=== PATIENT | male | born 1975 | race Caucasian/White ===

== ENCOUNTER 2017-06-28 06:44 | Emergency (ER) | payer OTHER ==
[~2017-06-28] VITALS: Ht 180.3 cm; Wt 126.1 kg
--- NOTE | ~2017-06-28 | CT52 ---
[facility] A Service of [facility] RADIOLOGY TEXT RESULTS PATIENT: CORNEL TUCKER LOCATION: [facility] : [birth year] UNIT #: [id number] AGE: [address]: Zeb Gorman MD SEX: M ORDER DR: [id number] [place] [id number] [facility]. [place], [place] [address] [id number] E MR#: [id number] Acc #: [id number] NAME: CORNEL TUCKER : 1975 SEX: M STUDY DATE/TIME: 06/28/2017 7:46 UNIT: [facility] ROOM: STUDY DESCRIPTION: CT Cervical Spine Wo Cont Attending Physician: Zeb Gorman M.D. Ordering Physician: Zeb Gorman M.D. Primary Care Physician: No Primary Care Physician MEDICAL IMAGING REPORT This report is preliminary unless electronic signature is present EXAM CT cervical spine without contrast. HISTORY 42-year-old male, unsteady gait, slurred speech, neck pain onset today. TECHNIQUE Thin section axial images performed through the cervical spine without contrast. Study is motion degraded. Multiplanar reconstructions. This CT exam was performed with one or more of the following radiation dose reduction techniques: automatic exposure control, adjustment of mA and/or kV according to patient size, and iterative reconstruction. FINDINGS No acute fracture or malalignment. Multilevel degenerative disc disease C4-5, C5-6, and C6-7 with mild to moderate central canal stenosis. This CT is limited for evaluation of disc disease due to lack of intrathecal contrast and motion degradation. Upper thorax unremarkable. Craniocervical cervicothoracic junctions appear normal. The atlantoaxial joint unremarkable except mild degenerative change. IMPRESSION 1. Technically limited study due to motion degradation. No acute fracture or malalignment. 2. Multilevel degenerative disc disease with multilevel spinal and foraminal stenosis most pronounced C4-5, C5-6, and C6-7. Significant uncovertebral osteophytes at the C5-6 level contributes to severe bilateral foraminal stenosis. Similar findings also noted at C4-5. Dictated by... [facility] A Service of [facility] RADIOLOGY TEXT RESULTS PATIENT: CORNEL TUCKER [id number] [birth year] UNIT #: [id number] AGE: [address]: Zeb Gorman MD SEX: M ORDER DR: Jelena Abdalla M.D. THIS IS AN ELECTRONICALLY VERIFIED REPORT Jelena Abdalla M.D. at 06/28/2017 4:48 PM BETINA/briana TD: 06/28/2017 12:05 JOB #: [id number] MEDICAL IMAGING REPORT Page 1 of 1 COPY
--- NOTE | ~2017-06-28 | CT71 ---
[facility] A Service of [facility] & [facility] RADIOLOGY TEXT RESULTS PATIENT: CORNEL TUCKER LOCATION: [facility] : 73 UNIT #: [id number] AGE: [address]: Zeb Gorman MD SEX: M ORDER DR: [id number] [facility] [address] [place], [place] [address] [id number] E MR#: [id number] Acc #: [id number] NAME: CORNEL TUCKER : 1975 SEX: M STUDY DATE/TIME: 06/28/2017 7:46 UNIT: [facility] ROOM: STUDY DESCRIPTION: CT Head Wo Contrast Attending Physician: Zeb Gorman M.D. Ordering Physician: Zeb Gorman M.D. Primary Care Physician: Primary Care Physician No MEDICAL IMAGING REPORT This report is preliminary unless electronic signature is present EXAM CT scan of the head without contrast HISTORY Unsteady gait, slurred speech, neck pain starting today. TECHNIQUE This CT exam was performed with one or more of the following radiation dose reduction techniques: automatic exposure control, adjustment of mA and/or kV according to patient size, and iterative reconstruction. FINDINGS Axial noncontrast images were obtained from the skull base to the vertex. Ventricular size and configuration are normal. There is no evidence of acute infarct or hemorrhage. There are no extra-axial fluid collections. No mass lesion or mass effect is seen. There are no skull fractures. IMPRESSION Normal noncontrast head CT. Dictated by... Ricardo Riddle M.D. THIS IS AN ELECTRONICALLY VERIFIED REPORT Ricardo Riddle M.D. at 06/28/2017 12:24 PM Elvi TD: 06/28/2017 11:35 JOB #: [id number] MEDICAL IMAGING REPORT Page 1 of 1 COPY
[2017-06-28 07:42] LABS: BASOPHIL# 0.1 X10e3 (0-0.3); BASOPHIL% 0.9 % (0-2.5); EOSINOPHIL# 0.7 X10e3 (0-0.7); EOSINOPHIL% 7.6 % (0.0-7.0); HEMATOCRIT 48.5 % (38.0-50.0); HEMOGLOBIN 16.7 gm/dL (13.0-16.0); LYMPHOCYTE# 1.9 X10e3 (1.0-3.5); LYMPHOCYTE% 21.7 % (17.0-45.0); MEAN CELL VOLUME 95.2 FL (83-96); MEAN CORPUSCULAR HEMOGLOBIN 32.8 PG (28-34); MEAN CORPUSCULAR HGB CONC 34.4 g/dL (30-36); MEAN PLATELET VOLUME 8.1 FL (6.5-11.5); MONOCYTE# 0.8 X10e3 (0-1.0); MONOCYTE% 9.8 % (3.0-12.0); NEUTROPHIL# 5.2 X10e3 (1.5-7.1); PLATELET COUNT 302 X10e3 (140-420); RED BLOOD COUNT 5.09 X10e (3.90-5.60); RED CELL DISTRIBUTION WIDTH 13.2 % (11.0-15.5); WHITE BLOOD COUNT 8.7 X10e3 (4.0-10.5)
[2017-06-28 07:48] LABS: DIFF IND NO
[2017-06-28 08:10] LABS: ALBUMIN SERUM 4.4 g/dL (3.5-5.0); ALKALINE PHOSPHATASE 63 U/L (32-92); ALT (SGPT) 54 U/L (10-40); AST (SGOT) 47 U/L (10-42); BILIRUBIN,TOTAL 0.4 mg/dL (0.2-2.0); BLOOD UREA NITROGEN 11 mg/dL (9-23); CARBON DIOXIDE 24 mmol/L (22-31); CHLORIDE 105 mmol/L (100-111); GLOM FILT RATE Estimated 91.8 mL/min (>60); GLUCOSE FASTING 87 mg/dL (70-110); LIPASE 30 U/L (22-51); POTASSIUM 3.5 mmol/L (3.5-5.1); PROTEIN TOTAL SERUM 7.5 g/dL (6.0-8.3); SALICYLATE <4.0 mg/dL; SODIUM 140 mmol/L (135-145)
[2017-06-28 08:12] LABS: ACETAMINOPHEN <10 ug/mL; ALCOHOL BLOOD 186 mg/dL (0)
== END 2017-06-28 13:50 | disposition home or self-care (01) ==
LOC: CED 06:44
PROVIDERS: Emergency Medicine
DX: T42.4X1A Poisoning by benzodiazepines, accidental (unintentional), initial encounter (principal); F10.20 Alcohol dependence, uncomplicated
CPT/HCPCS: 36415; 70450; 72125; 80053; 83690; 85025; 96360; 99285; G0480; J3411; J3475

== ENCOUNTER 2017-06-30 11:58 | Observation (INO) | payer OTHER ==
[~2017-06-30] VITALS: Ht 180.3 cm; Wt 121.2 kg
--- NOTE | ~2017-06-30 | CR170 ---
[facility] A Service of [facility] & [facility] RADIOLOGY TEXT RESULTS PATIENT: CORNEL TUCKER LOCATION: [facility] 325-01 : [birth year] UNIT #: [id number] AGE: [address]: CARLITO SOLIS V SEX: M ORDER DR: [id number] [facility] [address] [place], [place] [address] [id number] I MR#: [id number] Acc #: [id number] NAME: CORNEL TUCKER : 1975 SEX: M STUDY DATE/TIME: 07/01/2017 12:59 UNIT: [address] ROOM: [facility] STUDY DESCRIPTION: CR Knee 2 Views Rt Attending Physician: Carlito Solis M.D. Ordering Physician: Carlito Solis M.D. Primary Care Physician: Generic Doctor Not In System MEDICAL IMAGING REPORT This report is preliminary unless electronic signature is present EXAM 2 views right knee, 07/01/2017 HISTORY 42-year-old male with right knee pain after falling 5 days ago. COMPARISON None FINDINGS AP and lateral projection of the knee shows smooth articular anatomy without indication of fracture or dislocation at the major weight-bearing surface of the knee. There is no indication of radiopaque foreign body about the knee surface or joint effusion. IMPRESSION Normal right knee. Dictated by... Azucena Deutsch M.D. THIS IS AN ELECTRONICALLY VERIFIED REPORT Azucena Deutsch M.D. at 07/02/2017 8:56 AM JUNIOR/rosa TD: 07/01/2017 17:09 JOB #: [id number] MEDICAL IMAGING REPORT Page 1 of 1 COPY
--- NOTE | ~2017-06-30 | CO ---
Unit #: [id number] #: [id number] Patient: ALFREDO TUCKER [id number] [address] [address] [id number] I MR#: [id number] NAME: ALFREDO TUCKER ROOM: 325 Age: 42 Sex: M Admission Date: 06/30/2017 : 1975 Attending Physician: Henri Solis M.D. Primary Care Physician: Generic Doctor Not In System Consultation Date: 06/30/2017 CONSULTATION REPORT REASON FOR CONSULTATION Alcohol withdrawal, confusion, memory loss. HISTORY OF PRESENT ILLNESS Mr. Alfredo Tucker is a 42-year-old white male seen in room 325, bed 1 on 06/30/17. Patient reports that he is from [place] and he does not know how he ended up here. Patent is currently having alcohol withdrawal. Patient admitted using alcohol. Patient at this time is more coherent, cooperative, has a sitter. Patient denies any thoughts of harming self or others, denied any psychotic symptoms at this time. Patient was admitted with a history of alcohol abuse and Klonopin toxicity. Patient was sent from [place] [facility] with a concern of worsening of tremor. Patient was seen in the emergency room. Patient also had suicidal ideation in the past but denies any suicidal ideation at this time. Patient denied any use of any illicit drugs. Patient reports drinking a fifth of vodka and a 12 pack of beer. PAST PSYCHIATRIC HISTORY Past psychiatric history is remarkable for a history of alcohol abuse, history of depression, history of making suicidal statements. No history of any inpatient psychiatric treatment except recently at [place] [facility]. PAST MEDICAL HISTORY Remarkable for gout. MEDICATION HISTORY Patient was on Zoloft and Klonopin at home. SOCIAL AND FAMILY HISTORY Patient has a good support system, has a job, denied any history of any abuse, history of alcohol abuse, no history of any use of any illicit drugs. REVIEW OF SYSTEMS A complete review of systems is unremarkable except as mentioned above. PHYSICAL EXAMINATION VITAL SIGNS: Temperature 97.5, pulse 73, respirations 18, blood pressure 145/77, oxygen saturation 98%. MENTAL STATUS EXAMINATION General appearance, patient is dressed casually in hospital attire. Unit #: [id number] #: [id number] Patient: ALFREDO TUCKER Patient receiving IV fluid, has a sitter, able to answer questions appropriately, pleasant and cooperative. Attention span and concentration fair. Speech a regular rate, coherent. Oriented in time, place and person. Mood and affect sad, dysphoric, anxious, Thought process coherent. Thought content, the patient denied any thoughts of harming self or others or any hallucination but reported problem with the memory. Recent and remote memory fair but does not have recollection about how he got here. Language intact. Fund of knowledge fair. Insight and judgment fair to slightly impaired. DIAGNOSES PSYCHIATRIC: 1. Alcohol use disorder, severe, F10.20. 2. Delirium, F05, resolved. 3. History of major depressive disorder, recurrent, severe, F33.2. Secondary diagnosis: None Medical diagnosis: Please refer to H and P. Stressors: Psychosocial stressors. ASSESSMENT AND PLAN 1. Supportive psychotherapy and psychoeducation provided to patient. 2. Educated about benefits and side effects of medication and course and prognosis of illness. 3. Advised to continue with the current treatment and detox protocol, CIWA protocol. If needed consider further adjustment of medication. Please feel free to call if any question. Telephone number [phone]. Dictated by... Sharath Mesa/keyanna TD: 07/01/2017 20:43 JOB #: [id number] CONSULTATION REPORT Page 1 of 1 X Cresencio Gutierrez MD X CONSULTATION REPORT
--- NOTE | ~2017-06-30 | CO ---
Unit #: [id number] #: [id number] Patient: CORNEL AVILA [id number] [address] [place], [place] [address] [id number] I MR#: [id number] NAME: CORNEL AVILA ROOM: 325 Age: 42 Sex: M Admission Date: 06/30/2017 : 1975 Attending Physician: Henri Solis M.D. Primary Care Physician: Generic Doctor Not In System CONSULTATION REPORT REASON FOR CONSULTATION Followup. DISCUSSION MR. Cornel Avila is a 42-year-old male seen in room 325, bed 1, on 06/30/2017. The patient was referred for alcohol withdrawal, problems with memory, responding fairly well. The patient's urine drug screen was positive for benzodiazepines. The patient is pleasant and cooperative. He is dressed in hospital attire, lying comfortably in bed, receiving IV fluids. The patient denied any suicidal or homicidal ideation. Denied any psychotic symptoms. Has poor memory about coming to [place] from [place]. The patient was able to answer all the questions appropriately. The patient's vital signs are 98.1, respiratory rate 18, pulse 15/70, oxygen saturation 97%. GENERAL APPEARANCE: The patient is dressed casually. Attention span and concentration fair. Speech is regular rate, coherent, oriented to time, place and person. Mood and affect sad and dysphoric. Thought process coherent. Thought content normal. Denied any thoughts of harming self or others. Recent and remote memory fair. Language intact. Fund of knowledge fair. Insight and judgment fair to slightly impaired. DIAGNOSES Psychiatric 1. Alcohol use disorder. F10.20. 2. Major depressive disorder, recurrent. F33.2. ASSESSMENT/PLAN 1. Supportive psychotherapy, psychoeducation provided to the patient. 2. Educated about benefits and side effects of medication, course and prognosis of illness. 3. Advised to continue with current treatment and recommending to discontinue one-to-one monitoring. The patient is currently not suicidal or homicidal, cooperative. 4. Please feel free to call if any questions. Telephone number [phone] Dictated by... Cresencio Gutierrez M.D. Unit #: [id number] #: [id number] Patient: CORNEL AVILA [place]/gz TD: 07/01/2017 15:33 JOB #: [id number] CONSULTATION REPORT Page 1 of 1 X Cresencio Gutierrez MD CONSULTATION REPORT
--- NOTE | ~2017-06-30 | CO ---
Unit #: [id number] #: [id number] Patient: CORNEL TUCKER [id number] [address] [address] [id number] I MR#: [id number] NAME: CORNEL TUCKER ROOM: 325 Age: 42 Sex: M Admission Date: 06/30/2017 : 1975 Attending Physician: Henri Solis M.D. Primary Care Physician: Generic Doctor Not In System Consultation Date: 07/02/2017 CONSULTATION REPORT JOB NOTE: VERIFY WORK TYPE, MRN. ANDRAE Fuentes is a 42-year-old male, seen in room 325, bed 1 on 07/02/2017. The patient reports that he is feeling better and will be going to [facility] for rehab. The patient was alert, oriented in time, place, and person. The patient was able to answer questions coherently. Denied any suicidal or homicidal ideation. Denied any psychotic symptom. The patient's vital signs; temperature 98.6, heart rate 77, respiratory rate 19, blood pressure 154/105, and oxygen saturation 98%. REVIEW OF SYSTEMS Complete review of system is unremarkable. MENTAL STATUS EXAMINATION General appearance; the patient dressed casually. Attention span and concentration, fair. Speech, regular rate and coherent. Oriented in time, place, and person. Mood and affect were anxious, sad, dysphoric. Thought process, coherent. Thought content, the patient denied any thoughts of harming self or others. Recent and remote memory, fair. Language, intact. Fund of knowledge, fair. Insight and judgment, fair to slightly impaired. DIAGNOSIS Psychiatric: Alcohol use disorder, severe, F10.20. ASSESSMENT/PLAN 1. Supportive psychotherapy and psychoeducation provided to the patient. 2. Educated about benefits and side effects of medication and course and prognosis of illness. 3. Please feel free to call if any questions, telephone #[phone]. The patient will be going to [facility] for 30 days rehab program. Please feel free to call if any questions. Dictated by... Cresencio Gutierrez M.D. PHILLIP/vonnie TD: 07/03/2017 08:43 JOB #: [id number] Unit #: [id number] #: [id number] Patient: CORNEL TUCKER CONSULTATION REPORT Page 1 of 1 X Cresencio Gutierrez MD CONSULTATION REPORT
--- NOTE | ~2017-06-30 | DS ---
Unit #: [id number] #: [id number] Patient: CORNEL TUCKER [id number] [address] [address] [id number] I MR#: [id number] NAME: CORNEL TUCKER ROOM: 325 Age: 42 Sex: M Admission Date: 06/30/2017 : 1975 Discharge Date: 07/02/2017 Attending Physician: Henri Solis M.D. Primary Care Physician: Generic Doctor Not In System DISCHARGE SUMMARY PERTINENT HISTORY AND HOSPITAL COURSE The patient is a 42-year-old man with a history of alcohol abuse. He had initially presented to the emergency room on June 28 for worsening tremors, following which he was transferred to the [facility] for rehabilitation. While at the center, he apparently developed worsening delirium and was sent to the hospital for further evaluation. At the hospital, the patient received a psychiatry consultation. The psychiatrist provided supportive psychotherapy and psychoeducation to the patient. Recommended continuation of patient's current medications for treatment of depression and to continue current detox protocol. The patient is currently not suicidal, not having any auditory or visual hallucinations, not demonstrating any acute delirium. The patient's vitals are stable. The patient will be transferred back to [facility]. DISCHARGE DIAGNOSES 1. Alcohol abuse. 2. Alcohol withdrawal with delirium and tremors. 3. Depression. DISCHARGE MEDICATIONS 1. Gabapentin 300 mg p.o. b.i.d. 2. Zoloft 100 mg p.o. daily. 3. Norvasc 5 mg p.o. daily. 4. Allopurinol 300 mg p.o. daily. 5. Protonix 40 mg p.o. daily. 6. Lorazepam 1 mg p.o. daily. 7. Thiamine 200 mg p.o. daily. 8. Vitamin B complex one tablet p.o. daily. DISCHARGE INSTRUCTIONS 1. Patient is to be transferred to [facility]. 2. He is to continue with his current detox treatment. 3. Patient to follow with primary care physician as outpatient. 4. Followup with psychiatry as outpatient. Dictated by... Henri Solis M.D. [facility]/ Unit #: [id number] #: [id number] Patient: CORNEL TUCKER TD: 07/03/2017 15:01 JOB #: [id number] DISCHARGE SUMMARY Page 1 of 1 X X DISCHARGE SUMMARY
--- NOTE | ~2017-06-30 | HP ---
Unit #: [id number] #: [id number] Patient: CORNEL TUCKER [id number] [address] [address] [id number] I MR#: [id number] NAME: CORNEL TUCKER ROOM: 325 Age: 42 Sex: M Admission Date: 06/30/2017 : 1975 Attending Physician: Saurabh Smallwood M.D. HISTORY AND PHYSICAL CHIEF COMPLAINT Tremors. HISTORY OF PRESENT ILLNESS The patient is a 42-year-old male with a history of alcohol abuse and Klonopin toxicity brought to the emergency room from [facility] for concern for worsening tremors. The patient was seen in the emergency room on June 28 for clearance for detox placement. The patient had 20 mg of 0.5 mg Klonopin and drank a fifth of vodka and a 12-pack of beer on June 28. The patient was discharged from the emergency room to [facility]. The patient was brought today for concern for worsening tremors. The patient is on oral Ativan and received IV Ativan 1 mg in the emergency room and started feeling better. The patient also had suicidal ideation in the past, however, denies any suicidal ideation right now. Denies any fever, denies any chills, denies any headache, and denies any nausea and vomiting. PAST MEDICAL HISTORY 1. Mood disorder. 2. Gout. 3. Anxiety and depression. PAST SURGICAL HISTORY None. HOME MEDICATIONS Klonopin and Zoloft. ALLERGIES No known drug allergies. SOCIAL HISTORY He smokes a pack of cigarettes daily and drinks a fifth of vodka and beer. He denies any illicit drug abuse. FAMILY HISTORY Reviewed and none. REVIEW OF SYSTEMS Positive for tremors, positive for weakness. Denies any chest pain, denies any shortness of breath, denies any nausea and vomiting. All other systems have been reviewed and are negative. PHYSICAL EXAMINATION Unit #: [id number] #: [id number] Patient: CORNEL TUCKER GENERAL: Patient is lying in bed not in acute distress. VITAL SIGNS: Temperature 98.7, pulse 84, respiratory rate 15, blood pressure 160/82, and saturating 97% on room air. HEENT: Head atraumatic, normocephalic. Pupils equal, round, and reactive to light and accommodation. Extraocular movements are intact. Dry mucous membranes. NECK: Supple. LUNGS: Decreased air entry at the bases. HEART: Regular rate and rhythm. ABDOMEN: Soft. Positive bowel sounds. EXTREMITIES: Patient has cut vargas on both upper extremities secondary to suicide attempt in the past. NEUROLOGIC: Alert, awake, and oriented. Resting tremors and (1) . DIAGNOSTIC STUDIES LABORATORY: Sodium 136, potassium 4.2, chloride 105, bicarb 24, glucose 96, BUN 10, creatinine 1, AST 25, ALT 36, alkaline phosphatase 57, and albumin 3.8. CBC done on the showed a WBC of 8.7, hemoglobin 16.7, hematocrit 48.5, and platelets 302,000. IMAGING: CT of the cervical spine that was done on the shows multilevel degenerative disc disease with multilevel spinal and foraminal stenosis most pronounced at C4-5, C5-6, and C6-7. Significant uncovertebral osteophytes at the C5-6 level contributes to severe bilateral foraminal stenosis. Similar findings also noted at C4-5. CT of the head showed normal noncontrast head CT. ASSESSMENT 1. Alcohol withdrawal. 2. Anxiety. PLAN Admit the patient to observation. Will have a Psychiatric evaluation. Continue with [facility] protocol. Sitter one-to-one at the bedside. Repeat the labs again in the morning, and further recommendations will follow. Dictated by Sharath Taylor TD: 06/30/2017 17:09 JOB #: [id number] HISTORY AND PHYSICAL Page 1 of 1 X SAURABH SMALLWOOD MD X HISTORY AND PHYSICAL
[2017-06-30 13:55] LABS: ALBUMIN SERUM 3.8 g/dL (3.5-5.0); BILIRUBIN, DIRECT 0.1 mg/dL (0.0-0.2); BILIRUBIN,INDIRECT 0.6 mg/dL (0.0-0.9); BILIRUBIN,TOTAL 0.7 mg/dL (0.2-2.0); CALCIUM SERUM 8.8 mg/dL (8.4-10.2); GLOM FILT RATE Estimated 91.8 mL/min (>60); POTASSIUM 4.2 mmol/L (3.5-5.1); PROTEIN TOTAL SERUM 6.7 g/dL (6.0-8.3)
[2017-06-30 16:11] LABS: THYROID STIMULATING HORMONE 2.02 uIU/ml (0.34-5.60)
[2017-06-30 16:18] LABS: FREE THYROXIN (T4) 0.87 ng/dL (0.58-1.64)
[2017-06-30 18:28] LABS: URINE SOURCE CLEAN CATCH
[2017-06-30 18:34] LABS: ALBUMIN SERUM 3.7 g/dL (3.5-5.0); BILIRUBIN,TOTAL 0.5 mg/dL (0.2-2.0); BUN/CREATININE RATIO 8.33; CALCIUM SERUM 8.9 mg/dL (8.4-10.2); CREATININE SERUM 1.2 mg/dL (0.6-1.4); GLOM FILT RATE Estimated 73.6 mL/min (>60); PROTEIN TOTAL SERUM 6.6 g/dL (6.0-8.3)
[2017-06-30 18:35] LABS: URINE APPEARANCE CLEAR; URINE BILIRUBIN NEG (NEG); URINE BLOOD NEG (NEG); URINE COLOR YELLOW; URINE GLUCOSE NEG (NEG); URINE KETONE NEG (NEG); URINE LEUKOCYTE ESTERASE NEG (NEG); URINE NITRATE NEG (NEG); URINE PROTEIN NEG (NEG); URINE SPECIFIC GRAVITY 1.011 (1.003-1.035); URINE UROBILINOGEN 0.2 MG/DL (NEG)
[2017-06-30 18:46] LABS: AMPHETAMINE NEG (NEG); BARBITURATES NEG (NEG); BENZODIAZEPINES POS (NEG); COCAINE NEG (NEG); MARIJUANA NEG (NEG); OPIATES NEG (NEG); TRICYCLIC ANTIDEPRESSANTS NEG (NEG); U METHADONE NEG (NEG)
[2017-07-01] MEDS ORDERED: PHENERGAN25 M1 PO (03:48)
[2017-07-01] MEDS ORDERED: B-COMPLEX-VITA1 EACH PO (03:49)
[2017-07-01] MEDS ORDERED: PROTONIX PO (03:49)
[2017-07-01] MEDS ORDERED: THIAMINE HCL100 MG PO (03:50)
[2017-07-01] MEDS ORDERED: FOLIC ACID1 MG PO (03:50)
[2017-07-01] MEDS ORDERED: NORVASC PO (03:50)
[2017-07-01] MEDS ORDERED: ATIVAN PO (03:51)
[2017-07-01] MEDS ORDERED: ALLOPURINOL300 MG PO (03:51)
[2017-07-01] MEDS ORDERED: ZOLOFT100 MG PO (03:51)
[2017-07-01] MEDS ORDERED: ACETAMINOPHEN PO (03:52)
[2017-07-01] MEDS ORDERED: BENTYL10 MG PO (03:53)
[2017-07-01] MEDS ORDERED: GABAPENTIN300 M2 PO (03:53)
[2017-07-01] MEDS ORDERED: GUAIFENESIN600 M1 PO (03:55)
[2017-07-01] MEDS ORDERED: MOTRIN IB200 M1 PO (03:56)
[2017-07-01] MEDS ORDERED: VISTARIL PO (03:56)
[2017-07-01] MEDS ORDERED: LOPERAMIDE HCL2 M1 PO (03:57)
[2017-07-01] MEDS ORDERED: MILK OF MAGNESIA PO (03:58)
[2017-07-01] MEDS ORDERED: MAALOX SUSPENS355 ML PO (03:58)
[2017-07-01] MEDS ORDERED: DESYREL100 MG PO (03:59)
[2017-07-01] MEDS ORDERED: ZOFRAN PO (03:59)
[2017-07-01 06:10] LABS: BASOPHIL# 0.1 X10e3 (0-0.3); BASOPHIL% 1.1 % (0-2.5); EOSINOPHIL# 0.6 X10e3 (0-0.7); EOSINOPHIL% 11.9 % (0.0-7.0); HEMATOCRIT 44.9 % (38.0-50.0); HEMOGLOBIN 15.1 gm/dL (13.0-16.0); LYMPHOCYTE# 1.4 X10e3 (1.0-3.5); LYMPHOCYTE% 25.7 % (17.0-45.0); MEAN CORPUSCULAR HEMOGLOBIN 31.9 PG (28-34); MEAN CORPUSCULAR HGB CONC 33.6 g/dL (30-36); MEAN PLATELET VOLUME 8.5 FL (6.5-11.5); MONOCYTE# 0.5 X10e3 (0-1.0); MONOCYTE% 9.5 % (3.0-12.0); NEUTROPHIL# 2.8 X10e3 (1.5-7.1); NEUTROPHIL% 51.8 % (40-75); PLATELET COUNT 233 X10e3 (140-420); RED BLOOD COUNT 4.73 X10e (3.90-5.60); WHITE BLOOD COUNT 5.3 X10e3 (4.0-10.5)
[2017-07-01 06:15] LABS: DIFF IND NO
[2017-07-01 06:35] LABS: BUN/CREATININE RATIO 9.09; CALCIUM SERUM 8.4 mg/dL (8.4-10.2); CREATININE SERUM 1.1 mg/dL (0.6-1.4); GLOM FILT RATE Estimated 81.8 mL/min (>60); POTASSIUM 3.8 mmol/L (3.5-5.1)
== END 2017-07-02 12:22 | disposition other institution (70) | DRG 897 ==
LOC: CED 11:58 → CEDOF 15:00 → C3A PCU 15:00 → CED 15:56 → CEDOF 15:56 → C3A PCU 16:28
PROVIDERS: Emergency Medicine; Internal Medicine
DX: F10.231 Alcohol dependence with withdrawal delirium (principal); R25.1 Tremor, unspecified; F32.9 Major depressive disorder, single episode, unspecified; F41.9 Anxiety disorder, unspecified; M10.9 Gout, unspecified; F17.210 Nicotine dependence, cigarettes, uncomplicated; Z79.891 Long term (current) use of opiate analgesic; Z79.899 Other long term (current) drug therapy
CPT/HCPCS: 36415; 73560; 80048; 80053; 80076; 80307; 81003; 84439; 84443; 85025; 86592; 96372; 96374; 96376; 99285; G0378; J1650; J2060; J3411; J7042

== ENCOUNTER 2017-07-05 21:34 | Emergency (ER) | payer OTHER ==
[~2017-07-05] VITALS: Ht 180.3 cm; Wt 121.2 kg
[~2017-07-05 21:34] MED LIST: ACETAMINOPHEN PO; ALLOPURINOL300 MG PO; ATIVAN PO; B-COMPLEX-VITA1 EACH PO; BENTYL10 MG PO; DESYREL100 MG PO; FOLIC ACID1 MG PO; GABAPENTIN300 M2 PO; GUAIFENESIN600 M1 PO; LOPERAMIDE HCL2 M1 PO; MAALOX SUSPENS355 ML PO; MILK OF MAGNESIA PO; MOTRIN IB200 M1 PO; NORVASC PO; PHENERGAN25 M1 PO; PROTONIX PO; THIAMINE HCL100 MG PO; VISTARIL PO; ZOFRAN PO; ZOLOFT100 MG PO
[2017-07-05 23:09] LABS: BASOPHIL# 0.1 X10e3 (0-0.3); BASOPHIL% 0.6 % (0-2.5); DIFF IND NO; EOSINOPHIL# 0.5 X10e3 (0-0.7); EOSINOPHIL% 6.2 % (0.0-7.0); HEMATOCRIT 50.2 % (38.0-50.0); LYMPHOCYTE# 2.1 X10e3 (1.0-3.5); LYMPHOCYTE% 24.7 % (17.0-45.0); MEAN CELL VOLUME 96.1 FL (83-96); MEAN CORPUSCULAR HEMOGLOBIN 32.5 PG (28-34); MEAN CORPUSCULAR HGB CONC 33.8 g/dL (30-36); MEAN PLATELET VOLUME 8.8 FL (6.5-11.5); MONOCYTE% 11.4 % (3.0-12.0); NEUTROPHIL# 4.8 X10e3 (1.5-7.1); NEUTROPHIL% 57.1 % (40-75); PLATELET COUNT 241 X10e3 (140-420); RED BLOOD COUNT 5.22 X10e (3.90-5.60); WHITE BLOOD COUNT 8.3 X10e3 (4.0-10.5)
[2017-07-05 23:32] LABS: ALBUMIN SERUM 4.4 g/dL (3.5-5.0); BILIRUBIN, DIRECT 0.1 mg/dL (0.0-0.2); BILIRUBIN,INDIRECT 0.5 mg/dL (0.0-0.9); BILIRUBIN,TOTAL 0.6 mg/dL (0.2-2.0); CALCIUM SERUM 9.2 mg/dL (8.4-10.2); GLOM FILT RATE Estimated 91.8 mL/min (>60); POTASSIUM 4.1 mmol/L (3.5-5.1); PROTEIN TOTAL SERUM 7.2 g/dL (6.0-8.3)
== END 2017-07-06 01:01 | disposition other institution, planned readmission (95) ==
LOC: CED 21:34
PROVIDERS: Emergency Medicine
DX: F19.939 Other psychoactive substance use, unspecified with withdrawal, unspecified (principal); I10 Essential (primary) hypertension; F41.9 Anxiety disorder, unspecified; F17.200 Nicotine dependence, unspecified, uncomplicated
CPT/HCPCS: 36415; 80048; 80076; 82947; 85025; 96361; 96374; 96376; 99285; J2060